=== PATIENT | female | born 2000 | race Caucasian/White ===

== ENCOUNTER 2020-01-02 12:35 | Outpatient (CLI) | payer OTHER | END 2020-01-02 12:36 | disposition critical access hospital (66) | LOC: EMS 12:35 | PROVIDERS: ATTEND Surgery | DX: R42 Dizziness and giddiness (principal); R20.2 Paresthesia of skin; R20.0 Anesthesia of skin | CPT/HCPCS: A0425; A0429 ==

== ENCOUNTER 2020-01-02 12:55 | Emergency (ER) | payer OTHER ==
--- NOTE | 2020-01-02 14:46 | ED Physician Documentation ---
History of Present Illness - Stated complaint Stated Complaint: LIGHTHEADED/SOA - Chief complaint Chief Complaint: General - Additonal information Additional information: 19-year-old female presents to the emergency department via EMS after a near syncopal event at work. 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 She reports that feel a burning in her throat but then felt Like she was about to pass out. She reports that her coworkers told her she looked extremely pale and they helped her to the ground. She did not syncopized. She denies having chest pain or shortness of breath. She denies nausea vomiting abdominal pain. She denies dysuria. She denies the possibility of . She does endorse a history of anxiety and depression as well as ectodermal dysplasia. Patient denies unilateral leg swelling, history of DVT or cancer. She has no chest pain shortness of breath or pleuritic chest pain. 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 denies: Focal weakness, Numbness, Syncope, Confused, Altered mental status, Headache, LOC PD PAST MEDICAL HISTORY - Past Medical History Past Medical History: Yes Neuro: Head injury Psych: Depression, Anxiety - Past Surgical History General: Appendectomy - Allergies Allergies/Adverse Reactions: Allergies Allergy/AdvReac Type Severity Reaction Status Date / Time No Known Drug Allergies Allergy Verified 01/02/20 13:02 - Social History Does the pt smoke?: No Smoking Status: Never smoker Does the pt drink ETOH?: Yes Does the pt have substance abuse?: No Substance Use and Type: Marijuana - Immunizations Immunizations are current?: Yes PD ED PE EXPANDED - General General: Alert, No acute distress, Well developed/nourished - HEENT HEENT: Atraumatic, PERRL, EOMI - Eyes Eyes: PERRL, EOMI - Neck Neck: Supple w/out meningeal sx. No: Adenopathy - Cardiac Cardiac: Regular Rate, Regular Rhythm, Radial strong equal, Femoral strong equal, Pedal strong equal, Cap refill < 2 sec - Respiratory Respiratory: Clear to ausultation july. No: Distress, Labored - Abdomen Abdomen: Normal Bowel sounds. No: Tender to palpation - Derm Derm: Normal color, Warm and dry, Other (Hypertrophy thickening and curving of fingernails bilateral hands noted. Elongation of the radial bones bilaterally.). No: Rash, Petecchiae, Purpura, Abscess - Extremities Extremities: Deformity (Elongation of the radial bones bilaterally) - Neuro Neuro: Alert and Oriented X 3, CNII-XII intact, Cerebellar nl, Normal gait, Normal finger nose, Normal speech. No: Nystagmus - GCS Eye Opening: Spontaneous Motor: Obeys Commands Verbal: Oriented Total: 15 Results - Vitals Vitals: Vital Signs - 24 hr 01/02/20 13:02 Temperature 36.5 C Heart Rate 92 Respiratory 14 Rate Blood Pressure 142/99 H O2 Saturation 100 Oxygen O2 Source Room air - EKG (time done) 1500 Rate: Rate (enter#) (79) Rhythm: NSR [place]: Normal Intervals: Normal LA QRS: Normal Ischemia: Normal ST segments Compare to prior EKG: Old EKG unavailable Computer interpretation: Agree with computer - Labs Labs: Laboratory Tests 01/02/20 01/02/20 01/02/20 14:50 14:59 14:59 WBC 6.6 RBC 3.78 L Hgb 11.6 L Hct 34.7 L MCV 91.8 MCH 30.7 MCHC 33.4 RDW 12.7 Plt Count 313 MPV 9.8 Neut # (Auto) 5.3 Lymph # (Auto) 0.8 L [place] # (Auto) 0.4 Eos # (Auto) 0.0 Baso # (Auto) 0.0 Absolute Nucleated RBC 0.00 Nucleated RBC % 0.0 Sodium 138 Potassium 3.9 Chloride 103 Carbon Dioxide 25 Anion Gap 10.0 BUN 9 Creatinine 0.5 Estimated GFR (MDRD) 157 Glucose 104 H Calcium 9.2 Total Bilirubin 0.6 AST 20 ALT 12 Alkaline Phosphatase 57 Total Protein 7.6 Albumin 4.6 Globulin 3.0 Albumin/Globulin Ratio 1.5 Lipase 25 Urine Color RED/BLOODY Urine Clarity CLOUDY Urine pH 6.0 Ur Specific [place] 1.010 Urine Protein 30 H Urine Glucose (UA) NEGATIVE Urine Ketones NEGATIVE Urine Occult Blood LARGE H Urine Nitrite NEGATIVE Urine Bilirubin NEGATIVE Urine Urobilinogen 0.2 (NORMAL) Ur Leukocyte Esterase TRACE H Urine RBC TNTC H Urine WBC 0-3 Ur Squamous Epith Cells RARE Squamous Urine Bacteria Rare Ur Microscopic Review INDICATED Urine Culture Comments INDICATED Urine HCG, Qual NEGATIVE - Rads (name of study) CXR Radiology: EMP read indepedently (No acute cardiopulmonary process) PD MEDICAL DECISION MAKING - ED course Complexity details: reviewed results, re-evaluated patient, considered differential, d/w patient, d/w family ED course: 19-year-old female presents to the emergency department for evaluation of a near syncopal episode that occurred this afternoon at work when she was chopping onions. She has no history of previous near syncope. At the time of my exam in the emergency department she reports that she feels fine and is at baseline. Her chest x-ray is unremarkable. Her EKG is also unremarkable. Sinus rhythm without findings to suggest WPW. Labs and electrolytes are unremarkable. She is not . She is currently on her menses which likely represents the blood seen in the urine. Her vital signs have been normal and her neuro and cardiovascular exam are on concerning. At this time the etiology of the near syncope is not clear. She denies that it could have been a vasovagal event. Patient is PERC and Wells criteria negative. Suspicion for PE is very very low. She has no unilateral calf pain swelling or tenderness. No recent travel. She is not on hormone replacement. No personal history of blood clots or cancer. However given reassuring screening labs and imaging patient will be referred to follow-up with her primary care provider. Emergent return precautions discussed Departure - Departure Disposition: Home, Self Care Clinical Impression: Near syncope Condition: Stable Record reviewed to determine appropriate education?: Yes Instructions: ED Near Syncope Unkn Comments: I hope that you are feeling better soon. You were seen in the emergency department today for a near syncopal or fainting episode. Today your blood count and electrolytes were all essentially normal. Your EKG was also normal as well as your chest x-ray. On exam here in the emergency department your neurological and cardiovascular status was also unremarkable. It is not clear why you had a near fainting episode at work. Please discuss this ED visit with your primary care doctor. Return to the emergency department if you do develop further fainting episodes, or have chest pain.
--- NOTE | 2020-01-02 15:04 | XRAY Report ---
PROCEDURE: Chest 1 View X-Ray INDICATIONS: near syncope TECHNIQUE: One view of the chest was acquired. COMPARISON: None FINDINGS: Surgical changes and devices: None. Lungs and pleura: No pleural effusions or pneumothorax. Lungs are clear. Mediastinum: Mediastinal contours appear normal. Heart size is normal. Bones and chest wall: No suspicious bony lesions. Overlying soft tissues appear unremarkable. IMPRESSION: No acute cardiopulmonary disease process. Reviewed by: Skylar Escobedo MD, PhD on 01/02/2020 3:03 PM PDT Approved by: Skylar Escobedo MD, PhD on 01/02/2020 3:03 PM PDT Station ID: [id number]
[2020-01-02 15:05] LABS: BASOPHILS % (AUTO) 0.3 %; EOSINOPHILS % (AUTO) 0.3 %; HGB - HEMOGLOBIN 11.6 g/dL (12.0-16.0); LYMPHOCYTES # (AUTO) 0.8 10^3/uL (1.5-3.5); LYMPHOCYTES % (AUTO) 11.9 %; MEAN CORPUSCULAR HEMOGLOBIN 30.7 pg (27.0-31.0); MEAN CORPUSCULAR HGB CONC 33.4 g/dL (32.0-36.0); MEAN CORPUSCULAR VOLUME 91.8 fL (81.0-99.0); MEAN PLATELET VOLUME 9.8 fL (7.9-10.8); MONOCYTES # (AUTO) 0.4 10^3/uL (0.0-1.0); MONOCYTES % (AUTO) 6.5 %; NEUTROPHILS # (AUTO) 5.3 10^3/uL (1.5-6.6); NEUTROPHILS % (AUTO) 80.5 %; PLT - PLATELET COUNT 313 10^3/uL (130-450); RED BLOOD COUNT 3.78 10^6/uL (4.20-5.40); RED CELL DISTRIBUTION WIDTH 12.7 % (12.0-15.0); WHITE BLOOD COUNT 6.6 x10^3/uL (4.8-10.8)
[2020-01-02 15:11] LABS: BILIRUBIN,URINE NEGATIVE (NEGATIVE); GLUCOSE, URINE (UA) NEGATIVE (NEGATIVE); KETONES,URINE (UA) NEGATIVE (NEGATIVE); LEUKOCYTE ESTERASE, URINE TRACE (NEGATIVE); NITRITE,URINE NEGATIVE (NEGATIVE); OCCULT BLOOD,URINE LARGE (NEGATIVE); PROTEIN,URINE 30 mg/dL (NEGATIVE); UROBILINOGEN,URINE 0.2 (NORMAL) E.U./dL (NORMAL)
[2020-01-02 15:18] LABS: CLARITY,URINE CLOUDY (CLEAR)
[2020-01-02 15:19] LABS: HCG UR QUAL NEGATIVE; RBC,URINE TNTC /HPF (0-5); SQUAMOUS EPITHELIAL CELL,UR RARE Squamous (<= Few)
[2020-01-02 15:20] LABS: BACTERIA,URINE Rare /HPF (None Seen)
[2020-01-02 15:21] LABS: ALBUMIN 4.6 g/dL (3.2-5.5); ALBUMIN/GLOBULIN RATIO 1.5 (1.0-2.2); BILIRUBIN,TOTAL 0.6 mg/dL (0.2-1.0); CALCIUM 9.2 mg/dL (8.5-10.3); CREATININE 0.5 mg/dL (0.4-1.0); TOTAL PROTEIN 7.6 g/dL (6.7-8.2)
[2020-01-02 15:39] VITALS: BP 145/78
== END 2020-01-02 15:46 | disposition home or self-care (01) ==
LOC: ED 12:55
DX: R55 Syncope and collapse (principal); Q82.4 Ectodermal dysplasia (anhidrotic)
CPT/HCPCS: 36415; 71045; 80053; 81001; 81003; 81025; 83690; 85025; 87086; 93005; 99283; 99284

== ENCOUNTER 2020-06-19 12:36 | Emergency (ER) | payer SELFPAY ==
--- OUTSIDE RECORDS SUMMARY | 2020-06-19 13:11 | EXTERNAL MEDICAL SUMMARY RPT | Continuity of Care Document ---
:2000 Demographics Phone Unavailable Preferred Language Unknown Marital Status Unknown Worship Affiliation Unknown Race Unknown Ethnic Group Unknown Author Organization [facility] Address [address] [phone] Phone Social History date description facility [id number]
--- NOTE | 2020-06-19 13:27 | ED Physician Documentation ---
PD HPI OVERDOSE - Stated complaint Stated Complaint: OD - Chief complaint Chief Complaint: General - History obtained from History obtained from: Patient - History of Present Illness Timing - onset: How many hours ago (3) Subtance(s) ingested: Single (she takes Lexapro 20 mg each morning and this morning, she thought she had taken it yet and took a 2nd dose. She realized it after taking it. Started feeling lightheaded and some nausea. Concerned about it.) Associated symptoms: Other (lightheaded and feeling shaky in arms/hands.) Contributing factors: Accidental Similar symptoms before: Has not had sx before Recently seen: Not recently seen Review of Systems Constitutional: denies: Fever, Chills, Myalgias Eyes: denies: Decreased vision Nose: denies: Rhinorrhea / runny nose, Congestion Neurologic: reports: Generalized weakness. denies: Confused, Altered mental status, Headache PD PAST MEDICAL HISTORY - Past Medical History Neuro: Head injury Psych: Depression, Anxiety - Past Surgical History General: Appendectomy - Present Medications Home Medications: Ambulatory Orders Medication Instructions Recorded Confirmed Escitalopram [Lexapro] 20 mg PO DAILY PM 06/19/20 06/19/20 - Allergies Allergies/Adverse Reactions: Allergies Allergy/AdvReac Type Severity Reaction Status Date / Time No Known Drug Allergies Allergy Verified 06/19/20 12:41 - Social History Does the pt smoke?: No Smoking Status: Never smoker Does the pt drink ETOH?: Yes Does the pt have substance abuse?: No - Immunizations Immunizations are current?: Yes PD ED PE NORMAL - Vitals Vital signs reviewed: Yes (good vitals without tachycardia nor temp change. 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 ) Results - Vitals Vitals: Oxygen O2 Source Room air PD MEDICAL DECISION MAKING - ED course Complexity details: considered differential (she had taken 2 instead of 1 of her Lexapro, and feeling somewhat lightheaded. She is not having any vital lability nor altered mentation and the dosing should not really provoke a serotinin syndrome. ), d/w patient Departure - Departure Disposition: 01 Home, Self Care Clinical Impression: Accidental overdose Qualifiers: Encounter type: initial encounter Qualified Code(s): T50.901A - Poisoning by unspecified drugs, medicaments and biological substances, accidental (unintentional), initial encounter Serotonin neurotoxicity Qualifiers: Encounter type: initial encounter Injury intent: accidental or unintentional Qualified Code(s): T50.991A - Poisoning by other drugs, medicaments and b iological substances, accidental (unintentional), initial encounter Condition: Stable Record reviewed to determine appropriate education?: Yes Instructions: ED Overdose Accidental Comments: Your symptoms would correspond with extra serotonin activity. You do not seem to have significant symptoms at this time. Stay well-hydrated and rest through the day. If you are feeling back to normal by morning, then you can resume your normal Lexapro dose. If you still feel slightly abnormal, then just skip tomorrow's dose and resume the next day. Return if worsening symptoms through the day today. Discharge Date/Time: 06/19/20 14:50
[2020-06-19] MEDS ORDERED: ONDANSETRON ODT 4 MG TABLET TL STA (13:49)
[2020-06-19 14:39] VITALS: BP 126/76
== END 2020-06-19 14:50 | disposition home or self-care (01) ==
LOC: ED 12:36
DX: T43.221A Poisoning by selective serotonin reuptake inhibitors, accidental (unintentional), initial encounter (principal); R42 Dizziness and giddiness; R11.0 Nausea; Y92.009 Unspecified place in unspecified non-institutional (private) residence as the place of occurrence of the external cause
CPT/HCPCS: 99283; 99284; Q0162